=== PATIENT | female | born 1995 | race Native Hawaiian/Other Pacific Islander ===

== ENCOUNTER 2021-04-12 19:35 | Emergency (ER) | payer OTHER ==
[2021-04-12] MEDS ORDERED: SODIUM CHLORIDE 0.9% 1,000 ML IV ONE (21:33)
[2021-04-12] MEDS ORDERED: DEXAMETHASONE SOD PHOSPHATE 10 MG/ML 1 ML VIAL IVP STA (21:33)
[2021-04-12] MEDS ORDERED: diphenhydrAMINE 50 MG/ML 1 ML VIAL IVP STA (21:33)
[2021-04-12] MEDS ORDERED: KETOROLAC 15 MG/ML 1 ML VIAL IVP STA (21:33)
--- NOTE | 2021-04-12 21:57 | ED ---
Recheck HPI - General Chief Complaint: Headache Stated Complaint: Headache, fast heart rate Time Seen by Provider: 04/12/21 21:21 Source: patient, RN notes reviewed, old records reviewed Mode of arrival: ambulatory Limitations: no limitations - History of Present Illness Initial Comments: This is a 25-year-old female presents today with her mother for evaluation regards to headache recent fevers generalized body aches cough or congestion. Patient was recently seen in urgent care discharged home pending results of coronavirus test as well as lab results. Patient denies any other significant complaints no chest pain shortness of breath, no abdominal pain. Patient has no back pain. No flank pain. MD Complaint: abnormal lab (Patient believes she may have coronavirus, coming with diffuse body aches and pains) -: days(s) Returns Today for: persistent/worsening pain related to initial visit, other (Symptoms persistent despite urgent care visit) Symptoms Since Prior Visit: worsening pain, fever Associated Symptoms: fever, chills, nausea Treatments Prior to Arrival: other medications - Related Data Home Medications Medication Instructions Recorded Confirmed Amoxicillin/Potassium Clav 1 tab PO BID 04/12/21 04/12/21 [Augmentin 875-125 Tablet] Previous Rx's Medication Instructions Recorded Ciprofloxacin HCl [Cipro] 500 mg PO Q12HR #14 tablet 04/13/21 Allergies Allergy/AdvReac Type Severity Reaction Status Date / Time No Known Allergies Allergy Verified 04/12/21 22:22 Review of Systems ROS Statement: Those systems with pertinent positive or pertinent negative responses have been documented in the HPI. ROS Other: All systems not noted in ROS Statement are negative. Past Medical History Past Medical History: No Reported History History of Any Multi-Drug Resistant Organisms: None Reported Additional Past Surgical History / Comment(s): left kidney removed. Past Psychological History: Anxiety Smoking Status: Never smoker Past Alcohol Use History: None Reported Past Drug Use History: None Reported General Exam Limitations: no limitations General appearance: alert, in no apparent distress Head exam: Present: atraumatic, normocephalic, normal inspection Eye exam: Present: normal appearance, PERRL, EOMI. Absent: scleral icterus, conjunctival injection, periorbital swelling ENT exam: Present: normal exam, mucous membranes moist Neck exam: Present: normal inspection. Absent: tenderness, meningismus, lymphadenopathy Respiratory exam: Present: normal lung sounds bilaterally. Absent: respiratory distress, wheezes, rales, rhonchi, stridor Cardiovascular Exam: Present: regular rate, normal rhythm, normal heart sounds. Absent: systolic murmur, diastolic murmur, rubs, gallop, clicks GI/Abdominal exam: Present: soft, normal bowel sounds. Absent: distended, tenderness, guarding, rebound, rigid Extremities exam: Present: normal inspection, full ROM, normal capillary refill. Absent: tenderness, pedal edema, joint swelling, calf tenderness Back exam: Present: normal inspection Neurological exam: Present: alert, oriented X3, CN II-XII intact Psychiatric exam: Present: normal affect, normal mood Skin exam: Present: warm, dry, intact, normal color. Absent: rash Course Vital Signs 04/12/21 04/12/21 04/12/21 20:54 21:20 21:24 Temperature 99.1 F 99.0 F Pulse Rate 114 H 108 H Respiratory 20 20 19 Rate Blood Pressure 137/102 130/91 O2 Sat by Pulse 97 97 Oximetry 04/13/21 00:36 Temperature 97.8 F Pulse Rate 74 Respiratory 18 Rate Blood Pressure 108/68 O2 Sat by Pulse 99 Oximetry - Reevaluation(s) Reevaluation #1: 04/13/21 01:18 Medical record is reviewed Reevaluation #2: 04/13/21 01:18 Symptoms are improved here in the ER she continues to deny abdominal pain. Headache and other symptoms are resolved Reevaluation #3: 04/13/21 01:18 Patient informed results and questions answered Reevaluation #4: 04/13/21 01:19 Patient feels comfortable for discharge home. Able tolerate oral intake Medical Decision Making - Medical Decision Making 25 female to the emergency room today. Patient presents today for evaluation regards to fever does have urinary tract infection. Patient be treated for antibiotics and can be discharged home - Lab Data Result diagrams: 04/12/21 21:33 04/12/21 21:33 Lab Results 04/12/21 04/12/21 04/12/21 Range/Units 21:32 21:32 21:32 WBC (3.8-10.6) k/uL RBC (3.80-5.40) m/uL Hgb (11.4-16.0) gm/dL Hct (34.0-46.0) % MCV (80.0-100.0) fL MCH (25.0-35.0) pg MCHC (31.0-37.0) g/dL RDW (11.5-15.5) % Plt Count (150-450) k/uL MPV Neutrophils % % Lymphocytes % % Monocytes % % Eosinophils % % Basophils % % Neutrophils # (1.3-7.7) k/uL Lymphocytes # (1.0-4.8) k/uL Monocytes # (0-1.0) k/uL Eosinophils # (0-0.7) k/uL Basophils # (0-0.2) k/uL Sodium (137-145) mmol/L Potassium (3.5-5.1) mmol/L Chloride (98-107) mmol/L Carbon Dioxide (22-30) mmol/L Anion Gap mmol/L BUN (7-17) mg/dL Creatinine (0.52-1.04) mg/dL Est GFR (CKD-EPI)AfAm (>60 ml/min/1.73 sqM) Est GFR (CKD-EPI)NonAf (>60 ml/min/1.73 sqM) Glucose (74-99) mg/dL Calcium (8.4-10.2) mg/dL Total Bilirubin (0.2-1.3) mg/dL AST (14-36) U/L ALT (4-34) U/L Alkaline Phosphatase (38-126) U/L Total Protein (6.3-8.2) g/dL Albumin (3.5-5.0) g/dL Urine Color Yellow Urine Appearance Cloudy H (Clear) Urine pH 6.0 (5.0-8.0) Ur Specific [place] 1.037 H (1.001-1.035) Urine Protein 1+ H (Negative) Urine Glucose (UA) Negative (Negative) Urine Ketones Trace H (Negative) Urine Blood Moderate H (Negative) Urine Nitrite Negative (Negative) Urine Bilirubin Negative (Negative) Urine Urobilinogen 4.0 (<2.0) mg/dL Ur Leukocyte Esterase Large H (Negative) Urine RBC 9 H (0-5) /hpf Urine WBC 97 H (0-5) /hpf Ur Squamous Epith Cells 7 H (0-4) /hpf Urine Bacteria Rare H (None) /hpf Urine Mucus Occasional H (None) /hpf Urine HCG, Qual Not Detected (Not Detectd) Coronavirus (PCR) Not Detected (Not Detectd) Group A Strep Rapid (Negative) 04/12/21 04/12/21 04/12/21 Range/Units 21:33 21:33 21:34 WBC 23.8 H (3.8-10.6) k/uL RBC 5.03 (3.80-5.40) m/uL Hgb 14.5 (11.4-16.0) gm/dL Hct 42.8 (34.0-46.0) % MCV 85.1 (80.0-100.0) fL MCH 28.9 (25.0-35.0) pg MCHC 34.0 (31.0-37.0) g/dL RDW 13.8 (11.5-15.5) % Plt Count 432 (150-450) k/uL MPV 6.7 Neutrophils % 81 % Lymphocytes % 12 % Monocytes % 4 % Eosinophils % 1 % Basophils % 0 % Neutrophils # 19.3 H (1.3-7.7) k/uL Lymphocytes # 2.9 (1.0-4.8) k/uL Monocytes # 1.0 (0-1.0) k/uL Eosinophils # 0.2 (0-0.7) k/uL Basophils # 0.1 (0-0.2) k/uL Sodium 136 L (137-145) mmol/L Potassium 4.1 (3.5-5.1) mmol/L Chloride 104 (98-107) mmol/L Carbon Dioxide 21 L (22-30) mmol/L Anion Gap 11 mmol/L BUN 10 (7-17) mg/dL Creatinine 0.83 (0.52-1.04) mg/dL Est GFR (CKD-EPI)AfAm >90 (>60 ml/min/1.73 sqM) Est GFR (CKD-EPI)NonAf >90 (>60 ml/min/1.73 sqM) Glucose 94 (74-99) mg/dL Calcium 10.0 (8.4-10.2) mg/dL Total Bilirubin 0.8 (0.2-1.3) mg/dL AST 19 (14-36) U/L ALT 21 (4-34) U/L Alkaline Phosphatase 108 (38-126) U/L Total Protein 8.0 (6.3-8.2) g/dL Albumin 4.5 (3.5-5.0) g/dL Urine Color Urine Appearance (Clear) Urine pH (5.0-8.0) Ur Specific [place] (1.001-1.035) Urine Protein (Negative) Urine Glucose (UA) (Negative) Urine Ketones (Negative) Urine Blood (Negative) Urine Nitrite (Negative) Urine Bilirubin (Negative) Urine Urobilinogen (<2.0) mg/dL Ur Leukocyte Esterase (Negative) Urine RBC (0-5) /hpf Urine WBC (0-5) /hpf Ur Squamous Epith Cells (0-4) /hpf Urine Bacteria (None) /hpf Urine Mucus (None) /hpf Urine HCG, Qual (Not Detectd) Coronavirus (PCR) (Not Detectd) Group A Strep Rapid Negative (Negative) Disposition Clinical Impression: UTI (urinary tract infection) Disposition: HOME SELF-CARE Condition: Good Instructions (If sedation given, give patient instructions): Urinary Tract Infection in Women (ED) Prescriptions: Ciprofloxacin HCl [Cipro] 500 mg PO Q12HR #14 tablet Is patient prescribed a controlled substance at d/c from ED?: No Referrals: Evan Mcallister MD [Primary Care Provider] - 1-2 days
[2021-04-12 22:26] LABS: Basophils # (A) 0.1 k/uL (0-0.2); Basophils % (A) 0 %; Eosinophils # (A) 0.2 k/uL (0-0.7); Eosinophils % (A) 1 %; HCT 42.8 % (34.0-46.0); HGB 14.5 gm/dL (11.4-16.0); Lymphocytes # (A) 2.9 k/uL (1.0-4.8); Lymphocytes % (A) 12 %; MCH 28.9 pg (25.0-35.0); MCV 85.1 fL (80.0-100.0); Mean Platelet Volume 6.7; Monocytes % (A) 4 %; Neutrophils # (A) 19.3 k/uL (1.3-7.7); Neutrophils % (A) 81 %; Platelet Count 432 k/uL (150-450); RBC 5.03 m/uL (3.80-5.40); RDW 13.8 % (11.5-15.5); WBC 23.8 k/uL (3.8-10.6)
[2021-04-12 22:34] LABS: Appearance,Urine Cloudy (Clear); Bacteria,Urine Rare /hpf; Bilirubin,Urine Negative (Negative); Blood,Urine Moderate (Negative); Color,Urine Yellow; Glucose,Urine (UA) Negative (Negative); Ketones,Urine Trace (Negative); Leukocyte Esterase,Urine Large (Negative); Mucus,Urine Occasional /hpf; Nitrite,Urine Negative (Negative); Protein,Urine 1+ (Negative); RBC,Urine 9 /hpf (0-5); Specific Gravity,Urine 1.037 (1.001-1.035); Squamous Epithelial Cell,Urine 7 /hpf (0-4); WBC,Urine 97 /hpf (0-5)
[2021-04-12 22:40] LABS: ALT 21 U/L (4-34); AST 19 U/L (14-36); African American GFR (CKD) >90 (>60 ml/min/1.73 sqM); Albumin 4.5 g/dL (3.5-5.0); Alkaline Phosphatase 108 U/L (38-126); Anion Gap 11 mmol/L; Blood Urea Nitrogen 10 mg/dL (7-17); Carbon Dioxide 21 mmol/L (22-30); Chloride 104 mmol/L (98-107); Glucose 94 mg/dL (74-99); Non-African American GFR(CKD) >90 (>60 ml/min/1.73 sqM); Potassium 4.1 mmol/L (3.5-5.1); Sodium 136 mmol/L (137-145); Total Bilirubin 0.8 mg/dL (0.2-1.3)
[2021-04-12] MEDS ORDERED: ACETAMINOPHEN TAB 500 MG TAB PO STA (23:10)
[2021-04-12] MEDS ORDERED: SODIUM CHLORIDE 0.9% 1,000 ML IV STA (23:10)
[2021-04-13] MEDS ORDERED: CIPROFLOXACIN HCL 500 MG TAB PO STA (00:29)
[2021-04-13 00:37] VITALS: TEMP 97.8
[2021-04-13 01:40] VITALS: BP 105/68; PULSE 96; RESP 17
[2021-04-13 15:53] LABS: C. trachomatis,PCR Negative (Neg,Equiv); Chlamydia trachomatis Source Urine; N. gonorrhoeae,PCR Negative (Neg,Equiv); Neisseria Source Urine
== END 2021-04-13 01:31 | disposition home or self-care (01) ==
LOC: EC 19:35
DX: N39.0 Urinary tract infection, site not specified (principal); R51.9 Headache, unspecified; R00.0 Tachycardia, unspecified; Z20.822 Contact with and (suspected) exposure to COVID-19
CPT/HCPCS: 36415; 80053; 85025; 81001; 81025; 87491; 87591; 87086; 87081; 87430; 87635; 99284; 96365; 96375; 96361; J1200; J1100; J0696; J1885

== ENCOUNTER 2021-04-30 11:19 | Emergency (ER) | payer OTHER ==
[2021-04-30 11:44] VITALS: RESP 18
[2021-04-30] MEDS ORDERED: SODIUM CHLORIDE 0.9% 500 ML 500 ML IV STA (13:23)
[2021-04-30] MEDS ORDERED: SODIUM CHLORIDE 0.9% 1,000 ML IV ONE (13:46)
[2021-04-30 14:18] LABS: Basophils # (A) 0.1 k/uL (0-0.2); Basophils % (A) 1 %; Eosinophils # (A) 0.3 k/uL (0-0.7); Eosinophils % (A) 3 %; HCT 41.2 % (34.0-46.0); HGB 14.1 gm/dL (11.4-16.0); Lymphocytes # (A) 2.3 k/uL (1.0-4.8); Lymphocytes % (A) 24 %; MCH 29.1 pg (25.0-35.0); MCHC 34.2 g/dL (31.0-37.0); MCV 85.2 fL (80.0-100.0); Mean Platelet Volume 8.6; Monocytes # (A) 0.5 k/uL (0-1.0); Monocytes % (A) 6 %; Neutrophils # (A) 6.4 k/uL (1.3-7.7); Neutrophils % (A) 66 %; Platelet Count 411 k/uL (150-450); RBC 4.83 m/uL (3.80-5.40); RDW 13.8 % (11.5-15.5); WBC 9.8 k/uL (3.8-10.6)
[2021-04-30 14:35] LABS: Amorphous Sediment,Urine Rare /hpf; Appearance,Urine Clear (Clear); Bacteria,Urine Many /hpf; Bilirubin,Urine Negative (Negative); Blood,Urine Trace (Negative); Color,Urine Yellow; Glucose,Urine (UA) Negative (Negative); Ketones,Urine Negative (Negative); Leukocyte Esterase,Urine Small (Negative); Mucus,Urine Rare /hpf; Nitrite,Urine Negative (Negative); PH, Urine 5.5 (5.0-8.0); Protein,Urine Negative (Negative); RBC,Urine 2 /hpf (0-5); Specific Gravity,Urine 1.016 (1.001-1.035); Squamous Epithelial Cell,Urine 2 /hpf (0-4); Urobilinogen,Urine <2.0 mg/dL (<2.0); WBC,Urine 4 /hpf (0-5)
--- NOTE | 2021-04-30 15:19 | ED ---
General Adult HPI - General Chief complaint: Recheck/Abnormal Lab/Rx Stated complaint: Abnormal Labs/High white blood cells Time Seen by Provider: 04/30/21 13:23 Source: patient, RN notes reviewed Mode of arrival: ambulatory Limitations: no limitations - History of Present Illness Initial comments: This a 25-year-old female presents emergency Department with chief complaint of possible kidney infection. Patient states that she was treated for 10 day c ourse of at 10 days of antibiotics. Patient states that she still doesn't was feeling she's been having increasing diarrhea since taking her antibiotic she was placed on Augmentin and ciprofloxacin. Patient states her PCP sent her here for further evaluation. Patient is unsure when her urine culture showing but states that her white count has been elevated in the 20,000. Patient states that she's had no recent fevers chills night sweats. - Related Data Home Medications Medication Instructions Recorded Confirmed Acetaminophen Tab [Tylenol Tab] 1,000 mg PO Q6HR PRN 04/30/21 04/30/21 Allergies Allergy/AdvReac Type Severity Reaction Status Date / Time No Known Allergies Allergy Verified 04/30/21 13:37 Review of Systems ROS Statement: Those systems with pertinent positive or pertinent negative responses have been documented in the HPI. ROS Other: All systems not noted in ROS Statement are negative. Past Medical History Past Medical History: No Reported History Additional Past Medical History / Comment(s): 1 kidney History of Any Multi-Drug Resistant Organisms: None Reported Additional Past Surgical History / Comment(s): left kidney removed. Past Psychological History: Anxiety Smoking Status: Never smoker Past Alcohol Use History: None Reported Past Drug Use History: None Reported General Exam Limitations: no limitations General appearance: alert, in no apparent distress Head exam: Present: atraumatic, normocephalic, normal inspection Eye exam: Present: normal appearance, PERRL, EOMI. Absent: scleral icterus, conjunctival injection, periorbital swelling ENT exam: Present: normal exam, normal oropharynx, mucous membranes moist Neck exam: Present: normal inspection, full ROM. Absent: tenderness, meningismus, lymphadenopathy Respiratory exam: Present: normal lung sounds bilaterally. Absent: respiratory distress, wheezes, rales, rhonchi, stridor Cardiovascular Exam: Present: regular rate, normal rhythm, normal heart sounds. Absent: systolic murmur, diastolic murmur, rubs, gallop, clicks GI/Abdominal exam: Present: soft, normal bowel sounds. Absent: distended, tenderness, guarding, rebound, rigid Course Vital Signs 04/30/21 04/30/21 11:42 15:23 Temperature 97.7 F 98.9 F Pulse Rate 71 71 Respiratory 18 18 Rate Blood Pressure 149/97 119/94 O2 Sat by Pulse 99 99 Oximetry Medical Decision Making - Medical Decision Making 25-year-old presented for abnormal labs. Patient concerned about possible leukocytosis, kidney infection labs and imaging urinalysis all reviewed no cystic findings. Patient's been having diarrhea there is some mild concern of possible C. diff after multiple antibiotics patient will be discharged with stool culture, C. diff testing return parameters were discussed. - Lab Data Result diagrams: 04/30/21 14:08 04/30/21 15:21 Lab Results 04/30/21 04/30/21 04/30/21 Range/Units 14:08 14:08 14:08 WBC 9.8 (3.8-10.6) k/uL RBC 4.83 (3.80-5.40) m/uL Hgb 14.1 (11.4-16.0) gm/dL Hct 41.2 (34.0-46.0) % MCV 85.2 (80.0-100.0) fL MCH 29.1 (25.0-35.0) pg MCHC 34.2 (31.0-37.0) g/dL RDW 13.8 (11.5-15.5) % Plt Count 411 (150-450) k/uL MPV 8.6 Neutrophils % 66 % Lymphocytes % 24 % Monocytes % 6 % Eosinophils % 3 % Basophils % 1 % Neutrophils # 6.4 (1.3-7.7) k/uL Lymphocytes # 2.3 (1.0-4.8) k/uL Monocytes # 0.5 (0-1.0) k/uL Eosinophils # 0.3 (0-0.7) k/uL Basophils # 0.1 (0-0.2) k/uL Sodium (137-145) mmol/L Potassium (3.5-5.1) mmol/L Chloride (98-107) mmol/L Carbon Dioxide (22-30) mmol/L Anion Gap mmol/L BUN (7-17) mg/dL Creatinine (0.52-1.04) mg/dL Est GFR (CKD-EPI)AfAm (>60 ml/min/1.73 sqM) Est GFR (CKD-EPI)NonAf (>60 ml/min/1.73 sqM) Glucose (74-99) mg/dL Plasma Lactic Acid James (0.7-2.0) mmol/L Calcium (8.4-10.2) mg/dL Total Bilirubin (0.2-1.3) mg/dL AST (14-36) U/L ALT (4-34) U/L Alkaline Phosphatase (38-126) U/L Total Protein (6.3-8.2) g/dL Albumin (3.5-5.0) g/dL Lipase (23-300) U/L Urine Color Yellow Urine Appearance Clear (Clear) Urine pH 5.5 (5.0-8.0) Ur Specific [place] 1.016 (1.001-1.035) Urine Protein Negative (Negative) Urine Glucose (UA) Negative (Negative) Urine Ketones Negative (Negative) Urine Blood Trace H (Negative) Urine Nitrite Negative (Negative) Urine Bilirubin Negative (Negative) Urine Urobilinogen <2.0 (<2.0) mg/dL Ur Leukocyte Esterase Small H (Negative) Urine RBC 2 (0-5) /hpf Urine WBC 4 (0-5) /hpf Ur Squamous Epith Cells 2 (0-4) /hpf Amorphous Sediment Rare H (None) /hpf Urine Bacteria Many H (None) /hpf Urine Mucus Rare H (None) /hpf Urine HCG, Qual Not Detected (Not Detectd) 04/30/21 04/30/21 Range/Units 14:08 15:21 WBC (3.8-10.6) k/uL RBC (3.80-5.40) m/uL Hgb (11.4-16.0) gm/dL Hct (34.0-46.0) % MCV (80.0-100.0) fL MCH (25.0-35.0) pg MCHC (31.0-37.0) g/dL RDW (11.5-15.5) % Plt Count (150-450) k/uL MPV Neutrophils % % Lymphocytes % % Monocytes % % Eosinophils % % Basophils % % Neutrophils # (1.3-7.7) k/uL Lymphocytes # (1.0-4.8) k/uL Monocytes # (0-1.0) k/uL Eosinophils # (0-0.7) k/uL Basophils # (0-0.2) k/uL Sodium 134 L (137-145) mmol/L Potassium 3.9 (3.5-5.1) mmol/L Chloride 107 (98-107) mmol/L Carbon Dioxide 20 L (22-30) mmol/L Anion Gap 7 mmol/L BUN 7 (7-17) mg/dL Creatinine 0.78 (0.52-1.04) mg/dL Est GFR (CKD-EPI)AfAm >90 (>60 ml/min/1.73 sqM) Est GFR (CKD-EPI)NonAf >90 (>60 ml/min/1.73 sqM) Glucose 84 (74-99) mg/dL Plasma Lactic Acid James 0.8 (0.7-2.0) mmol/L Calcium 9.2 (8.4-10.2) mg/dL Total Bilirubin 0.8 (0.2-1.3) mg/dL AST 20 (14-36) U/L ALT 23 (4-34) U/L Alkaline Phosphatase 91 (38-126) U/L Total Protein 7.0 (6.3-8.2) g/dL Albumin 3.8 (3.5-5.0) g/dL Lipase 99 (23-300) U/L Urine Color Urine Appearance (Clear) Urine pH (5.0-8.0) Ur Specific [place] (1.001-1.035) Urine Protein (Negative) Urine Glucose (UA) (Negative) Urine Ketones (Negative) Urine Blood (Negative) Urine Nitrite (Negative) Urine Bilirubin (Negative) Urine Urobilinogen (<2.0) mg/dL Ur Leukocyte Esterase (Negative) Urine RBC (0-5) /hpf Urine WBC (0-5) /hpf Ur Squamous Epith Cells (0-4) /hpf Amorphous Sediment (None) /hpf Urine Bacteria (None) /hpf Urine Mucus (None) /hpf Urine HCG, Qual (Not Detectd) Disposition Clinical Impression: Diarrhea, Abdominal pain Disposition: HOME SELF-CARE Condition: Stable Instructions (If sedation given, give patient instructions): Abdominal Pain (ED) Additional Instructions: Please return to the Emergency Department if symptoms worsen or any other concerns. Is patient prescribed a controlled substance at d/c from ED?: No Referrals: Evan Mcallister MD [Primary Care Provider] - 1-2 days Time of Disposition: 16:13
[2021-04-30 15:25] VITALS: TEMP 98.9
--- NOTE | 2021-04-30 15:49 | CT ---
EXAMINATION TYPE: CT abdomen pelvis wo con DATE OF EXAM: 04/30/2021 COMPARISON: None HISTORY: right flank pain CT DLP: 894 mGycm Automated exposure control for dose reduction was used. Images obtained from the diaphragm to the floor the pelvis with no contrast. Lung bases are clear. There is no pleural effusion. Heart size is normal. There is no pericardial eff usion. Liver spleen stomach pancreas gallbladder appear normal. The bile ducts are not dilated. There is no adrenal mass. There are clips apparently from left nephrectomy. Right kidney shows no hyd ronephrosis. There is no retroperitoneal adenopathy. Ureters are not dilated. Bladder distends smooth ly. There is no inguinal hernia. There is no free fluid in the pelvis. There is no evidence of a pelv ic mass. There is no mesenteric edema. There is no ascites or free air. There is no sign of a bowel obstructio n. Appendix appears normal. Terminal ileum appears normal. The lumbar vertebra have normal spacing and alignment. Posterior elements are intact. There is no com pression fracture. Bony pelvis is intact. Hip joints are intact. Uterus is retroverted. IMPRESSION: Normal appendix. No sign of acute abdomen and pelvis. Single right kidney with no evidence of obstruc tion.
[2021-04-30 15:54] LABS: ALT 23 U/L (4-34); AST 20 U/L (14-36); African American GFR (CKD) >90 (>60 ml/min/1.73 sqM); Albumin 3.8 g/dL (3.5-5.0); Alkaline Phosphatase 91 U/L (38-126); Anion Gap 7 mmol/L; Blood Urea Nitrogen 7 mg/dL (7-17); Calcium 9.2 mg/dL (8.4-10.2); Carbon Dioxide 20 mmol/L (22-30); Chloride 107 mmol/L (98-107); Glucose 84 mg/dL (74-99); Lipase 99 U/L (23-300); Non-African American GFR(CKD) >90 (>60 ml/min/1.73 sqM); Potassium 3.9 mmol/L (3.5-5.1); Sodium 134 mmol/L (137-145); Total Bilirubin 0.8 mg/dL (0.2-1.3)
[2021-04-30 16:19] VITALS: BP 122/72; PULSE 82
== END 2021-04-30 16:19 | disposition home or self-care (01) ==
LOC: EC 11:19
DX: R19.7 Diarrhea, unspecified (principal); R10.9 Unspecified abdominal pain; Z90.5 Acquired absence of kidney
CPT/HCPCS: 36415; 74176; 80053; 81001; 81025; 83605; 83690; 85025; 99284

== ENCOUNTER 2021-09-18 16:34 | Emergency (ER) | payer BC, OTHER ==
[2021-09-18 16:49] VITALS: RESP 18; TEMP 97.8
[2021-09-18 17:36] LABS: Basophils % (A) 0 %; Eosinophils # (A) 0.3 k/uL (0-0.7); Eosinophils % (A) 2 %; HCT 41.5 % (34.0-46.0); HGB 14.4 gm/dL (11.4-16.0); Lymphocytes # (A) 3.1 k/uL (1.0-4.8); Lymphocytes % (A) 23 %; MCHC 34.8 g/dL (31.0-37.0); MCV 86.1 fL (80.0-100.0); Mean Platelet Volume 6.9; Monocytes # (A) 0.7 k/uL (0-1.0); Monocytes % (A) 5 %; Neutrophils # (A) 9.3 k/uL (1.3-7.7); Neutrophils % (A) 68 %; Platelet Count 398 k/uL (150-450); RBC 4.81 m/uL (3.80-5.40); RDW 13.7 % (11.5-15.5); WBC 13.7 k/uL (3.8-10.6)
--- NOTE | 2021-09-18 17:40 | ED ---
General Adult HPI - General Chief complaint: Vaginal Bleeding Stated complaint: Bleeding, 11 Weeks Preg. Time Seen by Provider: 09/18/21 17:10 Source: patient Mode of arrival: ambulatory Limitations: no limitations - History of Present Illness Initial comments: This 25-year-old female who is 11 weeks presents to the emergency Department with vaginal bleeding that began 30 minutes ago. Patient states this is her first and states she has had no complications thus far. Patient states her NARROW GAUGE OPERATOR is Daria Boone with [facility]. Patient states she has gotten one ultrasound but has not had her first visit yet. Patient states she does have an appointment tomorrow with [facility] tomorrow afternoon. Patient states she is currently taking vitamins daily. Patient states about 30-45 minutes ago she fell a gush of blood and states she presented directly to the emergency department after this happened. Patient denies any abdominal or uterine cramping or pain. Patient denies any lightheadedness, dizziness, change in vision. 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 Patient denies any fevers. Patient denies any chest pain, shortness of breath, abdominal pain, change in bowel or bladder, change in appetite. Patient denies any back pain or neck pain. - Related Data Home Medications Medication Instructions Recorded Confirmed Acetaminophen Tab [Tylenol Tab] 1,000 mg PO Q6HR PRN 04/30/21 09/18/21 Pnv,Calcium 72/Iron/Folic Acid 1 tab PO DAILY 09/18/21 09/18/21 [ Plus Tablet] Allergies Allergy/AdvReac Type Severity Reaction Status Date / Time No Known Allergies Allergy Verified 09/18/21 18:10 Review of Systems ROS Statement: Those systems with pertinent positive or pertinent negative responses have been documented in the HPI. ROS Other: All systems not noted in ROS Statement are negative. Past Medical History Past Medical History: No Reported History Additional Past Medical History / Comment(s): 1 kidney History of Any Multi-Drug Resistant Organisms: None Reported Additional Past Surgical History / Comment(s): left kidney removed. Past Psychological History: Anxiety Smoking Status: Never smoker Past Alcohol Use History: None Reported Past Drug Use History: None Reported General Exam Limitations: no limitations General appearance: alert, in no apparent distress Head exam: Present: atraumatic, normocephalic, normal inspection Eye exam: Present: normal appearance, PERRL, EOMI. Absent: scleral icterus, conjunctival injection, periorbital swelling ENT exam: Present: normal exam, mucous membranes moist Neck exam: Present: normal inspection, full ROM. Absent: tenderness, meningismus, lymphadenopathy Respiratory exam: Present: normal lung sounds bilaterally. Absent: respiratory distress, wheezes, rales, rhonchi, stridor Cardiovascular Exam: Present: regular rate, normal rhythm, normal heart sounds. Absent: systolic murmur, diastolic murmur, rubs, gallop, clicks GI/Abdominal exam: Present: soft, normal bowel sounds. Absent: distended, tenderness, guarding, rebound, rigid External exam: Present: other (Clot present in patient's pad in underwear and at vaginal opening. No active bleeding around clot present) Speculum exam: Present: other (Speculum and bimanual exam was not recommended by NARROW GAUGE OPERATOR, ) Extremities exam: Present: normal inspection, full ROM, normal capillary refill. Absent: tenderness, pedal edema, joint swelling, calf tenderness Back exam: Present: full ROM. Absent: CVA tenderness (R), CVA tenderness (L), paraspinal tenderness, vertebral tenderness Neurological exam: Present: alert, oriented X3, CN II-XII intact Psychiatric exam: Present: normal affect, normal mood Skin exam: Present: warm, dry, intact, normal color. Absent: rash Course Vital Signs 09/18/21 09/18/21 09/18/21 16:47 18:24 20:36 Temperature 97.8 F Pulse Rate 98 88 64 Respiratory 18 18 18 Rate Blood Pressure 122/90 112/72 118/78 O2 Sat by Pulse 96 97 96 Oximetry Medical Decision Making - Medical Decision Making This 25-year-old female who is 11 weeks presents to the emergency department with transvaginal bleeding that 30 minutes to 1 hour prior to presenting to the emergency department. Transvaginal ultrasound impression: Ultrasound gestational age is 10 weeks and 6 days. No complicating process seen. Intrauterine viable. Heart rate 172 bpm. Rhythm normal. Yolk sac 0.36. Labs with hemoglobin 14.4. White blood cells 13.7. Sodium 136. Serum hCG greater than 225,000. Patient blood type O+. Patient speak with Dr. Benavides which recommended I do not perform a pelvic exam as patient is currently not having any active vaginal bleeding. Patient with clot formed on external exam at vaginal opening, no active bleeding around clot. Reassessed 2 hours later and no active bleeding was present at that time either. Clot formation was still there and intact at external vaginal canal. I did instruct patient to have pelvic rest until seen and assessed by her NARROW GAUGE OPERATOR. Instructed patient to go to her appointment that she has scheduled with [facility] NARROW GAUGE OPERATOR tomorrow. Discharge the patient to return to the emergency department if bleeding returns or if any new, worsening, or concerning symptoms arise. Patient verbally agreed to plan. Patient sent home in stable condition. Case discussed in detail with my attending, Dr. Bustamante. - Lab Data Result diagrams: 09/18/21 17:19 09/18/21 17:19 Lab Results 09/18/21 09/18/21 09/18/21 Range/Units 17:15 17:19 17:19 WBC 13.7 H (3.8-10.6) k/uL RBC 4.81 (3.80-5.40) m/uL Hgb 14.4 (11.4-16.0) gm/dL Hct 41.5 (34.0-46.0) % MCV 86.1 (80.0-100.0) fL MCH 30.0 (25.0-35.0) pg MCHC 34.8 (31.0-37.0) g/dL RDW 13.7 (11.5-15.5) % Plt Count 398 (150-450) k/uL MPV 6.9 Neutrophils % 68 % Lymphocytes % 23 % Monocytes % 5 % Eosinophils % 2 % Basophils % 0 % Neutrophils # 9.3 H (1.3-7.7) k/uL Lymphocytes # 3.1 (1.0-4.8) k/uL Monocytes # 0.7 (0-1.0) k/uL Eosinophils # 0.3 (0-0.7) k/uL Basophils # 0.0 (0-0.2) k/uL Sodium 136 L (137-145) mmol/L Potassium 4.2 (3.5-5.1) mmol/L Chloride 106 (98-107) mmol/L Carbon Dioxide 19 L (22-30) mmol/L Anion Gap 11 mmol/L BUN 8 (7-17) mg/dL Creatinine 0.74 (0.52-1.04) mg/dL Est GFR (CKD-EPI)AfAm >90 (>60 ml/min/1.73 sqM) Est GFR (CKD-EPI)NonAf >90 (>60 ml/min/1.73 sqM) Glucose 81 (74-99) mg/dL Calcium 9.6 (8.4-10.2) mg/dL Total Bilirubin 0.6 (0.2-1.3) mg/dL AST 24 (14-36) U/L ALT 20 (4-34) U/L Alkaline Phosphatase 70 (38-126) U/L Total Protein 7.5 (6.3-8.2) g/dL Albumin 4.1 (3.5-5.0) g/dL HCG, Qual Detected HCG, Quant mIU/mL Blood Type O Positive Blood Type Confirm Blood Type Recheck No Previous Record Bld Type Recheck Status CABO Indicated Antibody Screen NEGATIVE Spec Expiration Date 09/21/2021 - 231409/18/21 09/18/21 Range/Units 17:19 17:20 WBC (3.8-10.6) k/uL RBC (3.80-5.40) m/uL Hgb (11.4-16.0) gm/dL Hct (34.0-46.0) % MCV (80.0-100.0) fL MCH (25.0-35.0) pg MCHC (31.0-37.0) g/dL RDW (11.5-15.5) % Plt Count (150-450) k/uL MPV Neutrophils % % Lymphocytes % % Monocytes % % Eosinophils % % Basophils % % Neutrophils # (1.3-7.7) k/uL Lymphocytes # (1.0-4.8) k/uL Monocytes # (0-1.0) k/uL Eosinophils # (0-0.7) k/uL Basophils # (0-0.2) k/uL Sodium (137-145) mmol/L Potassium (3.5-5.1) mmol/L Chloride (98-107) mmol/L Carbon Dioxide (22-30) mmol/L Anion Gap mmol/L BUN (7-17) mg/dL Creatinine (0.52-1.04) mg/dL Est GFR (CKD-EPI)AfAm (>60 ml/min/1.73 sqM) Est GFR (CKD-EPI)NonAf (>60 ml/min/1.73 sqM) Glucose (74-99) mg/dL Calcium (8.4-10.2) mg/dL Total Bilirubin (0.2-1.3) mg/dL AST (14-36) U/L ALT (4-34) U/L Alkaline Phosphatase (38-126) U/L Total Protein (6.3-8.2) g/dL Albumin (3.5-5.0) g/dL HCG, Qual HCG, Quant >299220.0 mIU/mL Blood Type Blood Type Confirm O Positive Blood Type Recheck Bld Type Recheck Status Antibody Screen Spec Expiration Date Disposition Clinical Impression: Threatened Disposition: HOME SELF-CARE Condition: Stable Instructions (If sedation given, give patient instructions): Threatened Miscarriage (ED), at 7 to 10 Weeks (ED) Additional Instructions: Please follow-up with your NARROW GAUGE OPERATOR appointment tomorrow they already have scheduled. Return to the emergency department with any new, worsening or concerning symptoms. Is patient prescribed a controlled substance at d/c from ED?: No Referrals: Evan Mcallister MD [Primary Care Provider] - 1-2 days Time of Disposition: 20:49
[2021-09-18 17:43] LABS: HCG,Qualitative Serum Detected
[2021-09-18 17:49] LABS: ALT 20 U/L (4-34); AST 24 U/L (14-36); African American GFR (CKD) >90 (>60 ml/min/1.73 sqM); Albumin 4.1 g/dL (3.5-5.0); Alkaline Phosphatase 70 U/L (38-126); Anion Gap 11 mmol/L; Blood Urea Nitrogen 8 mg/dL (7-17); Calcium 9.6 mg/dL (8.4-10.2); Carbon Dioxide 19 mmol/L (22-30); Chloride 106 mmol/L (98-107); Glucose 81 mg/dL (74-99); Non-African American GFR(CKD) >90 (>60 ml/min/1.73 sqM); Potassium 4.2 mmol/L (3.5-5.1); Sodium 136 mmol/L (137-145); Total Bilirubin 0.6 mg/dL (0.2-1.3); Total Protein 7.5 g/dL (6.3-8.2)
--- NOTE | 2021-09-18 18:30 | US ---
EXAMINATION TYPE: Transabdominal DATE OF EXAM: 09/18/2021 6:19 PM COMPARISON: NONE CLINICAL HISTORY: 11 weeks + vaginal bleeding. Patient is 11 wks and experiencing heavy vagi nal bleeding since this morning. EXAM PERFORMED: Transabdominal (TA) EXAM MEASUREMENTS: GESTATIONAL AGE / DATING Physician Established: 04/09/22 (11 weeks/0 days) EDC: 04/09/22 Dates by First Scan: No previous this is first scan here Dates by Current Scan for: (10 weeks/6 days) EDC: 04/10/22 MATERNAL ANATOMY Uterus: 11.8 x 8.0 x 9.2 cm Right Ovary: 3.0 x 2.2 x 1.9 cm Left Ovary: 3.1 x 1.6 x 2.5 cm Post CDS / Adnexa: wnl Presence of free fluid: no Presence of corpus luteal cyst: no Presence of subchorionic bleed: no GESTATION / SURVEY CRL: 3.94 cm (10 weeks/6 days) MSD: wnl Yolk Sac (normal less than 6mm): 0.36 Heart Rate: 172 bpm Rhythm: Normal IUP: Viable IUP Beta HcG (if available): Not available at this time IMPRESSION: The ultrasound gestational age is 10 weeks and 6 days. No complicating process seen.
[2021-09-18 20:38] VITALS: BP 118/78; PULSE 64
== END 2021-09-18 21:18 | disposition home or self-care (01) ==
LOC: EC 16:34
DX: O20.0 Threatened abortion (principal); Z3A.11 11 weeks gestation of pregnancy
CPT/HCPCS: 36415; 76801; 80053; 84702; 84703; 85025; 86850; 86900; 86901; 99284

== ENCOUNTER → 2021-11-27 | Outpatient (CLI) | payer OTHER ==
--- NOTE | 2021-11-27 20:19 | US ---
EXAMINATION TYPE: US OB anatomy transabd DATE OF EXAM: 11/27/2021 COMPARISON: US 09/18/21 HISTORY: Z36.3 MALFORNATION OF FETUS Anatomy scan per order TECHNIQUE: Transabdominal (TA) EXAM MEASUREMENTS: GESTATIONAL AGE / DATING Physician Established: (21 weeks/0 days) EDC: 04/09/22 Dates by First Scan: (20 weeks/6 days) EDC: 04/10/22 Dates by Current Scan for: (21 weeks/0 days) EDC: 04/09/22 SURVEY IUP: Single PLACENTA: Fundal PREVIA: No previa JOSE RAUL: 14.7 cm Normal CERVICAL LENGTH (transabdominal: norm > 3.0cm): 3.5 cm BIOMETRY PRESENTATION: Vertex BPD: 4.7 cm 20 weeks / 3 days HC: 18.9 cm 21 weeks / 2 days AC: 15.7 cm 20 weeks / 6 days FL: 3.6 cm 21 weeks / 2 days ESTIMATED WEIGHT IN GRAMS: 393 grams ESTIMATED WEIGHT IN LBS/OZ: 0 lbs. 14 oz. WEIGHT PERCENTAGE BASED ON ESTABLISHED DATE: 45 % HC/AC: 1.2 Normal FL/AC: 23 Normal HEART RATE: 153 bpm RHYTHM: Normal ANATOMY SEEN (within normal limits): * Lateral Vent (< 1 cm) 0.4 cm * Cisterna Magna (< 1.1 cm) 0.5 cm * Nuchal Fold (< 0.6 cm) 0.4 cm * Cerebellum (varies with age) 2.2 cm Choroid Plexus (bilateral) Midline Falx Cavus Septi Pellucidi Four Chamber Heart Outflow tracts: LVOT/RVOT Stomach Situs Nose / Lips Diaphragm Kidneys (bilateral) Bladder Cord Insert Three Vessel Cord Longitudinal Spine Transverse Spine Arms (bilateral) Legs (bilateral) Feet ANATOMY SEEN (does not appear within normal limits): None ANATOMY NOT SEEN: None IMPRESSION: 1. Single intrauterine gestation estimated at 21 weeks 0 days gestation based on the current ultrasou nd measurements. Cardiac activity measures 153 bpm. 2. anatomy as visualized appears within normal limits.
== END | disposition home or self-care (01) ==
LOC: RADUSWWP 09:31
PROVIDERS: ATTEND Obstetrics & Gynecology Obstetrics
DX: Z36.3 Encounter for antenatal screening for malformations (principal)
CPT/HCPCS: 76811

== ENCOUNTER 2022-02-15 12:32 | Outpatient (CLI) | payer OTHER ==
[2022-02-15 14:19] VITALS: BP 110/61; PULSE 76; RESP 18; TEMP 97.2
--- NOTE | 2022-02-15 14:32 | US ---
EXAMINATION TYPE: US OB BPP wo non-stress DATE OF EXAM: 02/15/2022 COMPARISON: anatomy scan 11/27/2021 CLINICAL HISTORY: 26-year-old female nonreactive nst. TECHNIQUE: Transabdominal (TA). Scoring by the television production assistant during real-time assessment. FINDINGS: BPP PARAMETERS: PRESENTATION: Vertex? HEART RATE: 163 bpm RHYTHM: Normal JOSE RAUL: 11.9cm DIAPHRAGM IMAGED: yes BPP SCORIN. Breathin (1 episode of breathing of 30 second duration in 30 minutes of scanning time) 2. Movement: 2 (at least 3 discrete body movements in 30 minutes) 3. Tone: 2 (1 episode of active flexion/extension of limb) 4. JOSE RAUL: 2 (JOSE RAUL index > 5cm) IMPRESSION: TOTAL SCORE: 8 / 8
== END 2022-02-15 14:15 | disposition home or self-care (01) ==
LOC: FBPOP 12:32
PROVIDERS: ATTEND Obstetrics & Gynecology Obstetrics
DX: Z36.83 Encounter for fetal screening for congenital cardiac abnormalities (principal)
CPT/HCPCS: 59025; 76819; 99213

== ENCOUNTER 2022-02-19 17:11 | Outpatient (CLI) | payer OTHER ==
[2022-02-19 18:21] VITALS: BP 123/76; PULSE 86; RESP 16; TEMP 98.1
== END 2022-02-19 18:10 | disposition home or self-care (01) ==
LOC: FBPOP 17:11
PROVIDERS: ATTEND Obstetrics & Gynecology Obstetrics
DX: O36.8390 Maternal care for abnormalities of the fetal heart rate or rhythm, unspecified trimester, not applicable or unspecified (principal)
CPT/HCPCS: 59025; 99213

== ENCOUNTER 2022-03-14 16:39 | Outpatient (CLI) | payer OTHER ==
[2022-03-14 17:53] VITALS: BP 137/73; PULSE 83; RESP 16; TEMP 98
--- NOTE | 2022-03-14 18:09 | US ---
EXAMINATION TYPE: US OB BPP wo non-stress DATE OF EXAM: 03/14/2022 COMPARISON: NONE CLINICAL HISTORY: BPP, non reactive nst. TECHNIQUE: Transabdominal (TA). Scoring by the electrotyper helper during real-time assessment. FINDINGS: BPP PARAMETERS: PRESENTATION: Vertex HEART RATE: 147 bpm RHYTHM: Normal JOSE RAUL: 12.1 DIAPHRAGM IMAGED: BPP SCORIN. Breathin (1 episode of breathing of 30 second duration in 30 minutes of scanning time) 2. Movement: 2 (at least 3 discrete body movements in 30 minutes) 3. Tone: 2 (1 episode of active flexion/extension of limb) 4. JOSE RAUL: 2 (JOSE RAUL index > 5cm) YARDER OPERATOR NOTES: IMPRESSION: TOTAL SCORE: 8 / 8
== END 2022-03-14 17:42 | disposition home or self-care (01) ==
LOC: FBPOP 16:39
PROVIDERS: ATTEND Obstetrics & Gynecology Obstetrics
DX: Z36.83 Encounter for fetal screening for congenital cardiac abnormalities (principal)
CPT/HCPCS: 59025; 76819

== ENCOUNTER 2022-03-17 19:35 | Inpatient (IN) | payer OTHER ==
[~2022-03-17 19:35] MED LIST: ROPIVACAINE 5 MG/ML 20 ML AMPULE ONE; SODIUM CHLORIDE 0.9% 100 ML BAG ONE; fentaNYL (PF) 50 MCG/ML 5 ML AMP ONE
[2022-03-17] MEDS ORDERED: LACTATED RINGERS 1,000 ML IV SCH ×2 (20:30→21:00)
[2022-03-17 21:01] LABS: Basophils # (A) 0.1 k/uL (0-0.2); Basophils % (A) 0 %; Eosinophils # (A) 0.2 k/uL (0-0.7); Eosinophils % (A) 2 %; HCT 35.9 % (34.0-46.0); HGB 11.7 gm/dL (11.4-16.0); Lymphocytes # (A) 2.1 k/uL (1.0-4.8); Lymphocytes % (A) 18 %; MCH 27.6 pg (25.0-35.0); MCHC 32.6 g/dL (31.0-37.0); MCV 84.7 fL (80.0-100.0); Mean Platelet Volume 7.4; Monocytes # (A) 0.7 k/uL (0-1.0); Monocytes % (A) 5 %; Neutrophils # (A) 8.8 k/uL (1.3-7.7); Neutrophils % (A) 73 %; Platelet Count 293 k/uL (150-450); RBC 4.24 m/uL (3.80-5.40); RDW 14.7 % (11.5-15.5)
[2022-03-17 21:06] LABS: Uric Acid 4.2 mg/dL (3.7-7.4)
[2022-03-17] MEDS: LABETALOL 100 MG TAB PO SCH (22:44)
[2022-03-18] MEDS ORDERED: METHYLERGONOVINE 0.2 MG/ML 1 ML AMP IM PRN (04:18)
[2022-03-18] MEDS ORDERED: LIDOCAINE 0.5% (PF) 5 MG/ML (50 ML SDV) SQ PRN (04:18)
[2022-03-18] MEDS ORDERED: BUTORPHANOL 1 MG/ML 1 ML VIAL IV PRN (04:18)
[2022-03-18] MEDS ORDERED: PENICILLIN G POTASSIUM 5,000,000 UNIT in DEXTROSE 5% IN WATER 100 ML IVPB STA ×2 (04:18)
[2022-03-18] MEDS ORDERED: OXYTOCIN 10 UNIT/ML 1 ML VIAL IM PRN (04:18)
[2022-03-18] MEDS ORDERED: TERBUTALINE 1 MG/ML VIAL SQ PRN (04:18)
[2022-03-18] MEDS ORDERED: CARBOPROST TROMETHAMINE 250 MCG/ML 1 ML AMP IM PRN (04:18)
[2022-03-18] MEDS ORDERED: OXYTOCIN 30 UNITS/500 ML NS 30 UNIT in SALINE 1 500ML.BAG IV SCH (04:30)
[2022-03-18] MEDS: LACTATED RINGERS 1,000 ML IV SCH ×2 (05:06→20:34)
[2022-03-18] MEDS ORDERED: PENICILLIN G POTASSIUM 2,500,000 UNIT in DEXTROSE 5% IN WATER 100 ML IVPB SCH ×2 (09:00)
--- NOTE | 2022-03-18 09:00 | P.HPOB ---
History of Present Illness H&P Date: 03/18/22 Chief Complaint: Increased pelvic pressure This is a 26-year-old female 1 para 0 EDC 04/09/2022 with 36-6/7 weeks' gestation who presented yesterday with a complaint of increased pelvic pressure. Patient was noted to be having intermittent late decelerations, and elevated blood pressure, 142/97 on admission. Labs were performed and all within normal limits. However decision was made to keep patient overnight for observation, repeat blood pressure checks and continuous monitoring. Past medical history significant for only one kidney, patient was a kidney donor. History of anxiety and depression. 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 History of Covid 2 with the , most recently on 02/25/2022. Past surgical history left nephrectomy. Social history is negative for tobacco, patient is an EMT. She denies any other alcohol or drug use. She is , spell is present. Current medications vitamins daily, Valtrex prophylactically daily. ALLERGIES none known. Family history significant for anxiety, depression, hypertension, hyperlipidemia. Past obstetric history rubella status immune, blood type O positive, group strep cultures unknown. One-hour Glucola testing within normal limits. Blood type O+. On exam patient is 5 foot 6 inches, 231 pounds, blood pressure on admission 142/97, pulse of 101. The general physical exam is within normal limits. On admission patient's cervix was 4 cm dilated, quite thick and posterior, -3 station, vertex presentation. Examination at this time is anterior lip, 0 st ation, vertex presentation. Artificial amniorrhexis revealed clear fluid. Continued late decelerations have been noted since the placement of the epidural within the past hour. Impression: 36-6/7 weeks intrauterine , active labor, penicillin G given 1. Nonreassuring heart tones, delivery impending. Plan: Team is prepared for normal spontaneous vaginal delivery at this time. Review of Systems Constitutional: Reports as per HPI Past Medical History Past Medical History: No Reported History Additional Past Medical History / Comment(s): donated left kidney in 2016, HSV History of Any Multi-Drug Resistant Organisms: None Reported Additional Past Surgical History / Comment(s): left kidney removed. Past Anesthesia/Blood Transfusion Reactions: No Reported Reaction Past Psychological History: Anxiety, Depression Additional Psychological History / Comment(s): not medicated Smoking Status: Never smoker Past Alcohol Use History: None Reported Past Drug Use History: None Reported - Past Family History Father Family Medical History: Cancer, Hyperlipidemia, Hypertension, Renal Disease Additional Family Medical History / Comment(s): colon cancer Mother Family Medical History: Asthma, Diabetes Mellitus, Hypertension Additional Family Medical History / Comment(s): type 2 Medications and Allergies Home Medications Medication Instructions Recorded Confirmed Type Vit No.180/Iron/Folic 1 tab PO DAILY 09/18/21 03/17/22 History [ Plus Tablet] valACYclovir HCL [Valtrex] 500 mg PO DAILY 02/15/22 03/17/22 History Allergies Allergy/AdvReac Type Severity Reaction Status Date / Time No Known Allergies Allergy Verified 03/17/22 19:52 Exam Vital Signs Temp Pulse Resp BP Pulse Ox 03/17/22 22:32 98.5 F 101 H 18 142/97 99 Intake and Output 03/17/22 03/18/22 03/18/22 22:59 06:59 14:59 Intake Total 1000 Balance 1000 Intake: IV 1000 Invasive Line 1 1000 Other: # Voids 3 Weight 104.78 kg See dictation under HPI please Results Result Diagrams: 03/17/22 20:30 Abnormal Lab Results - Last 24 Hours (Table) 03/17/22 Range/Units 20:30 WBC 12.0 H (3.8-10.6) k/uL Neutrophils # 8.8 H (1.3-7.7) k/uL Assessment and Plan Assessment: 36-6/7 weeks intrauterine , nonreassuring heart tones, gestational hypertension, improved with all 1. Active labor. Imminent delivery. Plan: Anticipate rapid normal spontaneous vaginal delivery. Time with Patient: Less than 30
--- NOTE | 2022-03-18 09:04 | P.PROBDLV ---
Vaginal Delivery Note - . Vaginal Delivery Note: This is a 26-year-old female 1 para 0 EDC 04/09/2022 at 36-6/7 weeks' gestation. Patient presented with a complaint of increased pelvic pressure. She was not in labor, however elevated blood pressures were noted. She was admitted for observation through the night for serial blood pressure checks. All admitting labs within normal limits. Patient had a late deceleration upon monitoring in the triage area. Please see dictated history and physical for details. Labetalol was given 100 mg orally 1. Blood pressure normalized. However through the night heart tones did reveal short segments of late decelerations. Active labor ensued. Penicillin G was given 1 dose for unknown group B strep status. Epidural was placed per her request. Oxytocin augmentation was given. Artificial amniorrhexis at the bedside this morning revealed clear fluid, patient was 0 station, 90%, vertex presentation, anterior lip. Perineal body was prepped and draped. With excellent maternal expulsive efforts the infant's head delivered occiput anterior and he restituted accordingly. There was a tight nuchal cord 1 that was reduced. The shoulders then quickly delivered and patient was delivered of a liveborn male infant at 0838 hours. Umbilical cord was doubly clamped and ligated, he was handed to waiting nurses for evaluation where scores of 8 and 9 at one and 5 minutes respectively were given. Infant weighed 5 lbs. 2 oz. or 2315 g. Placenta delivered very quickly, noted to be intact with trivascular cord at 0839 hours. Careful inspection of the cervix, vagina, perineum, periurethral, and perirectal areas revealed no lacerations or defects. Fundus is firm and in the midline, symmetric and 18 week size. All sponge needle and enhancement counts are correct. Placenta was be sent to pathology for evaluation. Patient is uncertain regarding circumcision for her son. Blood pressure after delivery 114/80.
[2022-03-18] MEDS ORDERED: diphenhydrAMINE 50 MG/ML 1 ML VIAL IVP PRN ×2 (09:34)
[2022-03-18] MEDS ORDERED: diphenhydrAMINE 25 MG CAP PO PRN (09:34)
[2022-03-18] MEDS ORDERED: BENZOCAINE/MENTHOL SPRAY 1 GM/SPRAY AEROSOL TOPICAL PRN (09:34)
[2022-03-18] MEDS ORDERED: ZOLPIDEM 5 MG TAB PO PRN (09:34)
[2022-03-18] MEDS ORDERED: diphenhydrAMINE 50 MG CAP PO PRN (09:34)
[2022-03-18] MEDS ORDERED: LANOLIN CREAM 5 GM TUBE TOPICAL PRN (09:34)
[2022-03-18] MEDS ORDERED: ACETAMINOPHEN TAB 325 MG TAB PO PRN (09:34)
[2022-03-18] MEDS ORDERED: HYDROCORTISONE 2.5% RECTAL CREAM 30 GM TUBE RECTAL PRN (09:34)
[2022-03-18] MEDS ORDERED: IBUPROFEN 600 MG TAB PO PRN (09:34)
[2022-03-18] MEDS ORDERED: SIMETHICONE 80 MG CHEWABLE PO PRN (09:34)
[2022-03-18] MEDS: SENNOSIDES-DOCUSATE SODIUM 1 EACH TAB PO SCH (20:23)
[2022-03-18] MEDS: LABETALOL 100 MG TAB PO SCH ×2 (20:31→20:32)
[2022-03-19] MEDS: SENNOSIDES-DOCUSATE SODIUM 1 EACH TAB PO SCH ×2 (07:51→19:53)
[2022-03-19] MEDS: LABETALOL 100 MG TAB PO SCH (13:03)
--- NOTE | 2022-03-19 17:09 | P.PNOBGVD ---
Subjective - Subjective Principal diagnosis: day #1 status post normal spontaneous vaginal delivery Interval history: Patient is doing well . She is ambulating and voiding without difficulty. States her lochia is minimal. She denies concerns. Infant remains in the nursery for poor feeding Patient reports: Reports appetite normal, Reports voiding normally, Reports pain well controlled, Reports ambulating normally [place]: doing well (In the nursery) Objective - Latest Vital Signs Latest vital signs: Vital Signs Temp Pulse Resp BP Pulse Ox 03/19/22 15:59 98.5 F 72 16 118/79 03/19/22 08:00 98.4 F 78 16 114/81 03/19/22 00:00 98 F 67 12 119/73 99 03/18/22 20:00 98.6 F 86 14 126/79 100 Intake and Output 03/19/22 03/19/22 03/19/22 06:59 14:59 22:59 Other: # Voids 2 2 2 - Exam Extremities: Present: normal, edema Abdomen: Present: normal appearance, soft Uterus: Present: normal, firm Assessment and Plan (1) 36 weeks gestation of Current Visit: Yes Status: Acute Code(s): Z3A.36 - 36 WEEKS GESTATION OF SNOMED Code(s): 43570862 (2) Active labor Current Visit: Yes Status: Acute Code(s): XXQ3022 - SNOMED Code(s): 549666720 Plan: Patient is doing well . We'll continue routine care. remains in the nursery doing well.
[2022-03-19 23:27] VITALS: RESP 18
[2022-03-20] MEDS: LABETALOL 100 MG TAB PO SCH ×2 (04:15→08:11)
--- NOTE | 2022-03-20 04:16 | P.DS ---
Providers Date of admission: 03/18/22 04:00 Expected date of discharge: 03/20/22 Attending physician: Miranda Lee Primary care physician: Stated None - Discharge Diagnosis(es) (1) 36 weeks gestation of Current Visit: Yes Status: Acute (2) Active labor Current Visit: Yes Status: Acute (3) Status post vaginal delivery Current Visit: Yes Status: Acute Hospital Course: This is a 26-year-old female 1 now para 1 with estimated due date of 1030 that presented at 36 and 6 with complaints of increasing pelvic pressure. Patient was noted to be in labor but blood pressures were elevated. Patient was admitted to the labetalol 100 mg 1. Through the night patient became increasingly uncomfortable and was noted to be in labor. Epidural was placed per anesthesia. An augmentation of labor was begun. Patient underwent amniotomy with clear fluid. Heart tones through the night did reveal short segments of late decelerations with return to category 2. Patient progressed to complete and with excellent maternal effort had normal spontaneous vaginal delivery of a viable male infant at 838 on 03/28. Apgars were noted to be 8 and 9 at one and 5 minutes. weight of 5 lbs. 2 oz. Patient did not sustain any lacerations during delivery. Patient's course was uneventful. No further elevation of blood pressures were appreciated. Patient has felt well, without complaints. We'll plan discharge home today Patient Condition at Discharge: Good Plan - Discharge Summary New Discharge Prescriptions: No Action Vit No.180/Iron/Folic [ Plus Tablet] 1 tab PO DAILY valACYclovir HCL [Valtrex] 500 mg PO DAILY Discharge Medication List Vit No.180/Iron/Folic [ Plus Tablet] 1 tab PO DAILY 09/18/21 [History] valACYclovir HCL [Valtrex] 500 mg PO DAILY 02/15/22 [History] Follow up Appointment(s)/Referral(s): Daria Mandujano DO [Doctor of Osteopathic Medicine] - 4 Weeks Patient Instructions/Handouts: Vaginal Delivery (DC), Vaginal Delivery (GEN) Discharge Disposition: HOME SELF-CARE
[2022-03-20 07:28] VITALS: BP 133/73; PULSE 90; TEMP 98
[2022-03-20] MEDS: SENNOSIDES-DOCUSATE SODIUM 1 EACH TAB PO SCH (07:30)
== END 2022-03-20 14:00 | disposition home or self-care (01) | DRG 806 ==
LOC: FBPOP 19:35 → 4FBP 21:51 → OBSVTOIN 03-18 04:00
PROVIDERS: ADMIT Obstetrics & Gynecology; ATTEND Obstetrics & Gynecology
PROC: 10E0XZZ Delivery of Products of Conception, External Approach (ICD-10-PCS; principal; 2022-03-18)
PROC: 4A0HXCZ Measurement of Products of Conception, Cardiac Rate, External Approach (ICD-10-PCS; 2022-03-18)
PROC: 10907ZC Drainage of Amniotic Fluid, Therapeutic from Products of Conception, Via Natural or Artificial Opening (ICD-10-PCS; 2022-03-18)
PROC: 3E033VJ Introduction of Other Hormone into Peripheral Vein, Percutaneous Approach (ICD-10-PCS; 2022-03-18)
DX: O13.4 Gestational [pregnancy-induced] hypertension without significant proteinuria, complicating childbirth (principal); O98.72 Human immunodeficiency virus [HIV] disease complicating childbirth; Z37.0 Single live birth; O60.14X0 Preterm labor third trimester with preterm delivery third trimester, not applicable or unspecified; O76 Abnormality in fetal heart rate and rhythm complicating labor and delivery; F32.A Depression, unspecified; F41.9 Anxiety disorder, unspecified; O69.1XX0 Labor and delivery complicated by cord around neck, with compression, not applicable or unspecified; O99.344 Other mental disorders complicating childbirth; Z21 Asymptomatic human immunodeficiency virus [HIV] infection status; Z3A.36 36 weeks gestation of pregnancy; Z86.16 Personal history of COVID-19; Z90.5 Acquired absence of kidney
CPT/HCPCS: 59025; 84450; 84460; 84550; 85025; 86850; 86900; 86901; 88307; 99215

== ENCOUNTER → 2023-07-11 | Outpatient (CLI) | payer OTHER ==
--- NOTE | 2023-07-11 08:26 | USB ---
Reason for Exam: Clinical finding. Technique: Method: Targeted. Findings: The upper outer quadrant of the right breast, the axilla of the right breast and the retroareolar of the right breast were scanned. Ultrasound upper outer quadrant right breast 9:00 to 12:00 including scanning of the subareolar region and axilla. No solid or cystic lesion or axillary lymphadenopathy. Dense tissue is present throughout.. Overall Assessment: Negative, BI-RAD 1 Management: Screening Mammogram of both breasts at age 40. Unless there is a clinical indication to start sooner. Further clinical management of any suspicious palpable areas. Patient can continue monthly self breast exams. Results were given to the patient verbally at the time of exam. Electronically signed and approved by: Mulu Griffith M.D. Radiologist
== END | disposition home or self-care (01) ==
LOC: RADUSWWP 07:39
PROVIDERS: ATTEND Obstetrics & Gynecology Obstetrics
DX: N63.0 Unspecified lump in unspecified breast (principal)

== ENCOUNTER → 2024-10-10 | Outpatient (CLI) | payer OTHER ==
[2024-10-10 15:29] LABS: T4, Free (Free Thyroxine) 1.01 ng/dL (0.80-1.80)
== END | disposition home or self-care (01) ==
LOC: LABWHC1 08:28
PROVIDERS: ATTEND Internal Medicine
DX: E03.8 Other specified hypothyroidism (principal)
CPT/HCPCS: 36415; 84439; 84443; 86376